=== PATIENT | female | born 1975 | race Caucasian/White ===

== ENCOUNTER 2018-03-30 11:20 | Outpatient (CLI) | payer OTHER | END 2018-03-30 11:21 | disposition home or self-care (01) | LOC: ULT 11:20 | PROVIDERS: ATTEND Physician Assistant | DX: Z00.00 Encounter for general adult medical examination without abnormal findings (principal); R06.09 Other forms of dyspnea; R68.89 Other general symptoms and signs; I08.1 Rheumatic disorders of both mitral and tricuspid valves | CPT/HCPCS: 93306 ==